=== PATIENT | male | born 1975 | race Caucasian/White ===

== ENCOUNTER 2023-06-17 09:40 | Emergency (ER) | payer BC ==
[~2023-06-17] VITALS: Ht 170.2 cm; Wt 98.4 kg
[2023-06-17] MEDS ORDERED: ONDANSETRON HCL/PF 4 MG/2 ML VIAL ONE (10:09)
[2023-06-17] MEDS ORDERED: KETOROLAC TROMETHAMINE INJ 30 MG/ML VIAL ONE (10:09)
[2023-06-17] MEDS ORDERED: MORPHINE SULFATE INJ 4 MG/ML DISP.SYRIN ONE (10:09)
[2023-06-17] MEDS: IV NS 0.9% 1,000 ML BAG IV ONE (10:17)
[2023-06-17] MEDS: ONDANSETRON HCL/PF 4 MG/2 ML VIAL IVP ONE (10:18)
[2023-06-17] MEDS: MORPHINE SULFATE INJ 2 MG/ML DISP.SYRIN IV ONE ×2 (10:20→11:57)
[2023-06-17] MEDS: KETOROLAC TROMETHAMINE 15 MG/ML VIAL IV ONE ×2 (10:21→12:13)
[2023-06-17 10:34] LABS: APPEARANCE,URINE SLIGHTLY CLOUDY (CLEAR); BILIRUBIN,URINE NEGATIVE (NEGATIVE); BLOOD, URINE 2+ Ery/uL (NEGATIVE); COLOR,URINE YELLOW (YELLOW); KETONES,URINE NEGATIVE (NEGATIVE); LEUKOCYTE ESTERASE ,URINE NEGATIVE (NEGATIVE); NITRITE, URINE NEGATIVE (NEGATIVE); PROTEIN,URINE TRACE mg/dl (NEGATIVE); UGLUCOSE NEGATIVE (NEGATIVE)
[2023-06-17 10:47] LABS: ADD URINE CULTURE NO; BACTERIA,URINE Few /HPF (None Seen); SQUAMOUS EPITHELIAL CELL,UR Few /HPF (None Seen)
[2023-06-17 10:59] LABS: CALCIUM, SERUM 9.2 mg/dL (8.5-10.1); CREATININE 1.1 mg/dL (0.6-1.3)
[2023-06-17 11:02] LABS: BASOPHILS % (AUTO) 0.4 % (0.0-2.0); EOSINOPHILS # (AUTO) 0.2 K/uL (0.0-0.7); EOSINOPHILS % (AUTO) 2.7 % (0.0-6.0); HEMATOCRIT 44 % (39-51); HEMOGLOBIN 14.8 g/dL (13.5-17.5); LYMPHOCYTES # (AUTO) 1.8 K/uL (0.8-4.8); LYMPHOCYTES % (AUTO) 30.8 % (20.0-44.0); MEAN CORPUSCULAR HEMOGLOBIN 29 PG (26.0-33.0); MEAN CORPUSCULAR HGB CONC 34 g/dl (31.0-36.0); MEAN CORPUSCULAR VOLUME 86 fL (80-96); MONOCYTES # (AUTO) 0.3 K/uL (0.1-1.30); MONOCYTES % (AUTO) 4.6 % (2.0-12.0); NEUTROPHILS # (AUTO) 3.5 K/uL (1.8-8.9); NEUTROPHILS % (AUTO) 61.5 % (43.0-81.0); PLATELET COUNT (AUTO) 175 K/uL (150-450); RED CELL DISTRIBUTION WIDTH 14.1 % (11.5-15.0); WHITE BLOOD COUNT (AUTO) 5.8 K/uL (4.3-11.0)
[2023-06-17] MEDS ORDERED: MORPHINE SULFATE INJ 2 MG/ML DISP.SYRIN ONE (11:48)
[2023-06-17] MEDS ORDERED: KETOROLAC TROMETHAMINE 15 MG/ML VIAL ONE (12:12)
[2023-06-17] MEDS ORDERED: ACETAMINOPHEN ES 500 MG TABLET ONE (13:05)
[2023-06-17] MEDS: ACETAMINOPHEN ES 500 MG TABLET PO ONE (13:07)
[2023-06-17 13:16] VITALS: BP 111/70; TEMP 98.4; O2SAT 95
== END 2023-06-17 13:16 | disposition home or self-care (01) ==
LOC: ER 09:49
DX: N20.0 Calculus of kidney (principal)
CPT/HCPCS: 99285; 74176; 96374; 96375; 96361; 96376; 85025; 80048; 81001; 36415; J2270 ×2; J1885 ×2; J2405; J7030